=== PATIENT | male | born 1985 | race Hispanic/Latino ===

== ENCOUNTER → 2018-10-31 | Outpatient (CLI) | payer OTHER | END | disposition home or self-care (01) | LOC: RAH 15:00 | PROVIDERS: ATTEND Orthopaedic Surgery | DX: S82.202A Unspecified fracture of shaft of left tibia, initial encounter for closed fracture (principal); M25.462 Effusion, left knee; X58.XXXA Exposure to other specified factors, initial encounter; Y93.89 Activity, other specified; Y92.89 Other specified places as the place of occurrence of the external cause; Y99.8 Other external cause status | CPT/HCPCS: 73700 ==